=== PATIENT | female | born 1955 | race Caucasian/White ===

== ENCOUNTER 2020-04-30 10:18 | Emergency (ER) | payer OTHER ==
[~2020-04-30] VITALS: Ht 157.5 cm; Wt 49.9 kg
[2020-04-30] MEDS ORDERED: TRAZODONE HCL100 MG PO (10:51)
[2020-04-30] MEDS ORDERED: WELLBUTRIN SR150 MG PO (10:51)
== END 2020-04-30 12:46 | disposition home or self-care (01) ==
LOC: ED 10:18
DX: G43.909 Migraine, unspecified, not intractable, without status migrainosus (principal); Z88.2 Allergy status to sulfonamides; Z88.5 Allergy status to narcotic agent; Z79.899 Other long term (current) drug therapy
CPT/HCPCS: 96365; 96366; 96375; 99283-25; J1100; J1885; J3475; J7030